=== PATIENT | male | born 1980 | race Caucasian/White ===

== ENCOUNTER 2018-07-12 12:12 | Emergency (ER) | payer BC, SELFPAY ==
[2018-07-12] MEDS ORDERED: Lidocaine 1% 20 ML MDV ONE (12:37)
[2018-07-12] MEDS ORDERED: Adacel (T-DAP) 0.5 ML VIAL ONE (12:41)
== END 2018-07-12 13:14 | disposition home or self-care (01) ==
LOC: SCSER 12:12
DX: S01.312A Laceration without foreign body of left ear, initial encounter (principal); W26.8XXA Contact with other sharp object(s), not elsewhere classified, initial encounter
CPT/HCPCS: 12011; 90471; 90715; J2001

== ENCOUNTER 2018-11-05 17:41 | Observation (INO) | payer BC, SELFPAY ==
[~2018-11-05 17:41] MED LIST: Iopamidol 370 76% 100 ML VIAL ONE
[2018-11-05 18:20] LABS: #Basophils 0.1 thou/uL (0.0-0.2); #Eosinphils 0.1 thou/uL (0.0-0.7); #Lymphocytes 1.3 thou/uL (1.20-3.40); #Monocytes 0.8 thou/uL (0.11-0.59); #Neutrophils 7.4 thou/uL (1.40-6.50); %Basophils 1.1 % (0.0-1.0); %Eosinophils 1.4 % (0.0-10.0); %Lymphocytes 13.5 % (21.0-51.0); %Monocytes 8.1 % (0.0-10.0); %Neutrophils 75.9 % (42.0-75.0); Hemoglobin 15.3 g/dL (14.0-18.0); Mean Corpuscular HGB CONC 34.4 g/dL (32.0-36.0); Mean Corpuscular Hemoglobin 31.7 pg (27.0-31.0); Mean Corpuscular Volume 92.3 fL (78.0-98.0); Mean Platelet Volume 10.5 fL (7.4-10.4); Platelet Count 275 thou/uL (130-400); RBC Distribution Width 11.8 % (11.5-14.5); Red Blood Cell (RBC) Count 4.82 mill/uL (4.70-6.10); White Blood Cell (WBC) Count 9.7 thou/uL (4.8-10.8)
[2018-11-05 18:28] LABS: ALT (SGPT) 26 U/L (8-55); AST (SGOT) 25 U/L (5-34); Albumin 4.9 g/dL (3.5-5.0); Alkaline Phosphatase 73 U/L (40-150); Anion Gap 15 mmol/L (10-20); BUN (Urea Nitrogen) 12 mg/dL (8.9-20.6); Bilirubin, Total 0.5 mg/dL (0.2-1.2); CK (CPK) 340 U/L (30-200); Calc. Creatinine Clearance 0 mL/min (70-130); Calcium 9.8 mg/dL (7.8-10.44); Carbon Dioxide 28 mmol/L (22-29); Chloride 103 mmol/L (98-107); Estimated GFR-MDRD 76; Globulin 2.9 g/dL (2.4-3.5); Glucose 97 mg/dL (70-105); Potassium 3.9 mmol/L (3.5-5.1); Protein, Total 7.8 g/dL (6.0-8.3); Sodium 142 mmol/L (136-145)
[2018-11-05] MEDS ORDERED: Ketorolac Tromethamine 30 MG/ML VIAL ONE (18:50)
[2018-11-05] MEDS ORDERED: Clopidogrel Bisulfate 75 MG TAB ONE (18:50)
--- NOTE | 2018-11-05 20:21 | CT ---
CT BRAIN 11/05/18 HISTORY: Syncope. Noncontrast enhanced CT images of the brain is obtained from the base of the skull to the vertex. Bra in and bone windows obtained. CT images of the brain demonstrate the brain to be unremarkable. No evidence of intracranial masses, hemorrhages, strokes or contusions seen. IMPRESSION: Unremarkable CT brain POS: [facility]
[2018-11-05 20:50] VITALS: BMI 24.8
--- NOTE | 2018-11-05 20:58 | CT ---
CT CERVICAL SPINE: 11/05/18 HISTORY: Syncopal episode. History of fall, neck pain. A noncontrast enhanced CT images of the cervical spine obtained. Sagittal and coronal reconstructed i mages performed. CT images cervical spine demonstrate disc space height loss with anterior and posterior osteophytes a t C5-6. This is compatible with changes of spondylosis. No evidence of acute cervical spine fractures, subluxations or bony lesions seen. IMPRESSION: Changes of spondylosis at C5-6, otherwise unremarkable CT cervical spine. POS: [facility]
--- NOTE | 2018-11-05 21:00 | CT ---
CONTRAST ENHANCED CT IMAGES CHEST 11/05/18 HISTORY: Syncope. Fall. Back pain. Contrast enhanced CT of the chest performed. The lungs are well aerated. No evidence of active intrat horacic disease seen. No evidence of pleural or pericardial effusion seen. No evidence of pulmonary e mboli seen. Osseous structures are intact. No evidence of rib fractures seen. Sagittal and coronal reconstructed images of the thoracic spine demonstrates no evidence of masses or lesions. IMPRESSION: Unremarkable contrast enhanced CT of the chest. POS: [facility]
[2018-11-05 21:08] LABS: Troponin I 0.017 ng/mL (< 0.028)
[2018-11-05] MEDS ORDERED: Ondansetron ODT 4 MG TAB SL PRN (21:48)
[2018-11-05] MEDS ORDERED: Ondansetron PF 4 MG/2 ML Vial IVP PRN (21:48)
[2018-11-05] MEDS ORDERED: Ketorolac Tromethamine 30 MG/ML VIAL IVP PRN (21:52)
[2018-11-05] MEDS ORDERED: Clopidogrel Bisulfate 75 MG TAB PO SCH (22:00)
[2018-11-05] MEDS: HYDROcodone/Acetaminophen 7.5/325 mg Tablet PO PRN (23:30)
[2018-11-05] MEDS ORDERED: Cyclobenzaprine 10 MG TAB PO SCH (23:30)
[2018-11-06 00:12] LABS: Troponin I 0.012 ng/mL (< 0.028)
--- NOTE | 2018-11-06 03:52 | HP ---
CHIEF COMPLAINT: "Passed out" HISTORY OF PRESENT ILLNESS: Mr. Fay is a 38-year-old man, who presents after experiencing a sudden syncopal episode while at home today, witnessed by his daughter. He recalls getting up from the couch after waking up from a nap. He had taken several steps and had no warning symptoms i.e. lightheadedness, or dizziness. No chest pain or sob. Daughter describes mild twitching in the upper extremities, but no stiffness or convulsions. He states he has had episodes similar to this for many years. He states he has never undergone any investigations for this. He underwent an ECG in the ER and was noted to have a partial right bundle-branch block. CT Head/neck showed changes of spondylosis at C5-C6, otherwise unremarkable, and no evidence of any fractures. He also underwent a CT of the chest, which was unremarkable. A brain CT also showed no acute changes. The patient was then transferred here from [facility] ER. He is being admitted for observation and further investigations. REVIEW OF SYSTEMS: The patient denies having any recent fevers, chills, or sweats. Denies having any issues with headaches or dizziness. He is experiencing neck pain at this moment since having the collapse earlier today. He states the pain is in the neck up to the occiput and on the anterior neck along his skin, which he describes as sharp needles with minimal tenderness to light touch. He states he has not experienced pain like this before. 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 He describes occasional numbness and tingling in the right upper extremity that sometimes extends into his right shoulder. Denies having any weakness. Has not experienced this today. He denies having any nausea or vomiting. No abdominal pain or cramping. No changes with his stools. Denies having any urinary symptoms. No skin changes. All other review of systems are negative. PAST MEDICAL HISTORY: None. PAST SURGICAL HISTORY: None. FAMILY HISTORY: The patient is adopted, therefore it is unknown. SOCIAL HISTORY: Denies any heavy alcohol use, tobacco use or drug use. ALLERGIES: EXCEDRIN CAUSED HIVES 20 YEARS AGO. HE DENIES ANY ALLERGIES TO ACETAMINOPHEN. TRAMADOL CAUSES ITCHING. CURRENT MEDICATIONS: None. PHYSICAL EXAMINATION: GENERAL: The patient appears well developed, well nourished, and is in no acute distress. VITAL SIGNS: Temperature 97.9, pulse 60, respirations 20, O2 saturation 98% on room air. Blood pressure 146/106. HEENT: Normocephalic and atraumatic. Pupils are equal, round, and reactive to light. Extraocular movements normal. No nystagmus. Oropharynx is clear. NECK: Supple with radicular type pain upon slight touch of the anterior neck. Mild discomfort with palpation of the posterior neck. No skull deformities. Full range of motion. LUNGS: Clear to auscultation. CARDIAC: Regular rhythm. ABDOMEN: Soft, nontender, nondistended. Normoactive bowel sounds present. EXTREMITIES: No clubbing, cyanosis, or edema. NEUROLOGIC: Alert and oriented x3. No neuro deficits. SKIN: Without rash or jaundice. LABORATORY DATA: Full blood count normal. Platelets 275. Sodium 142, potassium 3.9, chloride 103, BUN 12, creatinine 1.10, GFR 76, glucose 97, calcium 9.8, total bilirubin 0.5, AST 25, ALT 26, alkaline phosphatase 73, CK 340, troponin 0.018, albumin 4.9. IMAGING DATA: As mentioned above in HPI. IMPRESSION AND PLAN: Mr. Fay is a 38-year-old man, who is being admitted for management of the followin. Syncope. The patient has had recurrent syncopal episodes for the last several years that happen without warning. He has no preceding or associated symptoms. We have requested an echo as well as a brain MRI and carotid Dopplers. We will obtain a urine drug screen and urinalysis. Orthostatic blood pressures x 1. 2. Neck pain. The patient did sustain an injury when he collapsed. No evidence of any fractures on CT imaging of the spine; however, we have added a MRI of the cervical spine to the brain MRI. We will give Ogema and Flexeril, as no relief with Toradol. 4. Deep venous thromboembolism prophylaxis with mechanical SCDs. 5. Gastrointestinal prophylaxis. 6. FULL CODE STATUS and his is his surrogate decision maker. The patient's case was discussed with Dr. Montgomery, who agrees with plan of care as described above. Job ID: [id number] MTDD
[2018-11-06] MEDS: HYDROcodone/Acetaminophen 7.5/325 mg Tablet PO PRN ×4 (04:32→21:01)
[2018-11-06 05:28] LABS: Bilirubin Negative (Negative); Blood, Urine Negative (Negative); Clarity CLEAR (Clear); Glucose, Urine (Dipstick) Negative (Negative); Leukocyte Negative (Negative); Nitrite Negative (Negative); Protein, Urine (Dipstick) Negative (Neg-Trace); Specific Gravity, Urine 1.025 (1.002-1.036); Urobilinogen 0.2 mg/dL (0.2-1.0)
[2018-11-06] MEDS ORDERED: Cyclobenzaprine 10 MG TAB PO SCH (05:30)
[2018-11-06 05:31] LABS: Bacteria/HPF None Seen HPF (None Seen); Hyaline Casts/LPF 0-3 HYALINE CAST LPF (0-3 Hyaline); Pathc Cast-AUWi Flag 0.14 (0-2.49); RBC/HPF 0-3 HPF (0-3); Squamous Epithelial 0-3 HPF (0-3); WBC/HPF 0-3 HPF (0-3)
[2018-11-06 05:35] LABS: Urine Culture Reflex No No
[2018-11-06 05:38] LABS: Amphetamine Not Detected (NotDetected); Barbiturates Screen Not Detected (NotDetected); Benzodiazepine Screen Not Detected (NotDetected); Cocaine Metabolite Screen Not Detected (NotDetected); Medtox Control Line Valid? VALID (VALID); Medtox Reader # READER 4; Methadone Not Detected (NotDetected); Methamphetamine Not Detected (NotDetected); Opiate Screen Not Detected (NotDetected); Oxycodone Screen Not Detected (NotDetected); Phencyclidine (PCP) Not Detected (NotDetected); THC/Cannabinoid Screen Detected (NotDetected); Tricyclic Screen Not Detected (NotDetected)
[2018-11-06 05:47] LABS: #Eosinphils 0.3 thou/uL (0.0-0.7); #Lymphocytes 2.1 thou/uL (1.20-3.40); #Monocytes 0.5 thou/uL (0.11-0.59); #Neutrophils 3.2 thou/uL (1.40-6.50); %Basophils 0.8 % (0.0-1.0); %Eosinophils 4.8 % (0.0-10.0); %Lymphocytes 33.7 % (21.0-51.0); %Monocytes 8.8 % (0.0-10.0); %Neutrophils 51.9 % (42.0-75.0); Hemoglobin 13.4 g/dL (14.0-18.0); Mean Corpuscular HGB CONC 34.5 g/dL (32.0-36.0); Mean Corpuscular Hemoglobin 32.7 pg (27.0-31.0); Mean Corpuscular Volume 94.7 fL (78.0-98.0); Mean Platelet Volume 9.7 fL (7.4-10.4); Platelet Count 225 thou/uL (130-400); RBC Distribution Width 11.6 % (11.5-14.5); White Blood Cell (WBC) Count 6.2 thou/uL (4.8-10.8)
[2018-11-06 06:04] LABS: Anion Gap 12 mmol/L (10-20); BUN (Urea Nitrogen) 14 mg/dL (8.9-20.6); Calc. Creatinine Clearance 118 mL/min (70-130); Calcium 9.1 mg/dL (7.8-10.44); Carbon Dioxide 24 mmol/L (22-29); Chloride 108 mmol/L (98-107); Estimated GFR-MDRD 86; Glucose 101 mg/dL (70-105); Potassium 3.6 mmol/L (3.5-5.1); Sodium 140 mmol/L (136-145)
[2018-11-06] MEDS: Famotidine 20 MG TAB PO SCH ×2 (09:17→21:00)
--- NOTE | 2018-11-06 11:31 | MRI ---
MRI BRAIN NONCONTRAST: Date: 11/05/18 HISTORY: Syncope. FINDINGS: There is no evidence of acute intracranial hemorrhage or infarct. Ventricles appear normal in size, s hape, and position. There is no mass effect or shift of midline structures. IMPRESSION: No acute intracranial abnormalities are demonstrated. POS: [facility]
--- NOTE | 2018-11-06 12:19 | MRI ---
MRI CERVICAL SPINE NONCONTRAST: Date: 11/05/18 HISTORY: Fall. Neck pain with right arm radiculopathy. FINDINGS: Vertebral body height and alignment are maintained. Bone marrow signal is within normal limits. C2-3, C3-4, C4-5, and C7-T1: Central canal and neural foramina are patent. C5-6: Mild posterior and left posterolateral disc protrusion slightly effacing the ventral aspect of the thecal sac and left ventral aspect of the spinal cord. Osteophytosis results in severe stenosis of each neural foramen. No abnormal signal is apparent within the cord. Severe central canal stenosis . C6-7: Mild osteophyte/disc complex. Mild central canal stenosis. Osteophytosis with severe bilateral foraminal stenoses. IMPRESSION: Degenerative changes lower cervical spine, including severe bilateral foraminal stenoses at the C5-6 and C6-7 levels. Posterior disc bulge also effaces the thecal sac and results in severe stenosis of t he central canal at the C5-6 level. No evidence of myelomalacia. POS: [facility]
[2018-11-06] MEDS: Cyclobenzaprine 10 MG TAB PO PRN (13:31)
--- NOTE | 2018-11-06 16:12 | ULT ---
CAROTID ULTRASOUND: HISTORY: A 38-year-old with syncope. TECHNIQUE: Multiple longitudinal and transverse images of the carotid arteries obtained using a Multi-Hertz line ar array transducer. FINDINGS: Real-time, color-flow, and spectral wave-form Doppler analysis demonstrates no significant evidence o f calcified or noncalcified plaques in the right or left common carotid, internal carotid, or externa l carotid arteries. Antegrade flow is seen in both vertebral arteries. IMPRESSION: Normal carotid Doppler ultrasound with no significant evidence of stenosis or flow-limiting lesion se en. POS: [facility]
[2018-11-06] MEDS ORDERED: Lisinopril 5 MG TAB PO SCH (16:30)
--- NOTE | 2018-11-06 17:48 | PDOC.PN ---
- Subjective Encounter Start Date: 11/06/18 Encounter Start Time: 13:00 The patient is a 38 year old male who has presented with an episode of syncope at home. He has had numerous episodes in the past, and has presented for workup. His and daughter are at bedside. He denies any chest pain, SOB, or dizziness. He denies palpitations. He states that he has had some tingling in his right arm which is a chronic problem for him. He does have some neck pain after his syncopal event, but this is improved since his arrival. - Objective Resuscitation Status - Order Detail: 11/05/18 22:59 Resuscitation Status Routine Co-Sign Provider: Resuscitation Status: FULL: Full Resuscitation Vital Signs & Weight: Vital Signs (12 hours) Temp Pulse Resp BP BP Pulse Ox 11/06/18 16:31 71 11/06/18 15:39 97.9 F 71 15 158/99 H 99 11/06/18 11:40 97.8 F 61 15 149/96 H 98 11/06/18 07:27 97.4 F L 63 14 140/91 H 98 Weight Weight 178 lb 1.6 oz I&O: 11/05/18 11/06/18 11/07/18 06:59 06:59 06:59 Intake Total 800 600 Output Total 600 Balance 200 600 Result Diagrams: 11/06/18 04:58 11/06/18 04:58 Phys Exam - Physical Examination HEENT: PERRLA Neck: no nodes, no JVD Respiratory: no wheezing, no rales, clear to auscultation bilateral Cardiovascular: RRR, no significant murmur Gastrointestinal: soft, non-tender Musculoskeletal: no edema, pulses present Neurological: non-focal Lymphatic: no nodes Psychiatric: normal affect, A&O x 3 Deviation from normal: Tatoos present; small superficial mobile cyst located right posterior neck Dx/Plan (1) Syncope Code(s): R55 - SYNCOPE AND COLLAPSE Status: Acute Qualifiers: Syncope type: vasovagal syncope Qualified Code(s): R55 - Syncope and collapse (2) Hypertension Code(s): I10 - ESSENTIAL (PRIMARY) HYPERTENSION Status: Acute Qualifiers: Hypertension type: essential hypertension Qualified Code(s): I10 - Essential (primary) hypertension (3) Foraminal stenosis of cervical region Code(s): M99.81 - OTHER BIOMECHANICAL LESIONS OF CERVICAL REGION Status: Chronic (4) Cannabis abuse Code(s): F12.10 - CANNABIS ABUSE, UNCOMPLICATED Status: Acute - Plan * . Will await echo and carotid doppler results. Serum cortisol normal. Initiate anti-hypertensive with lisinopril 5 mg daily. Regrading his severe foraminal stenosis C5-C6, care discussed with Killian Dorsey PA-C. He does have severe foraminal stenosis, but not concerning for significant central stenosis, and she recommends outpatient follow up. If workup negative and BP controlled, anticipate discharge tomorrow, pending echo and carotid doppler results. Review of Systems - Review of Systems Constitutional: negative: fever, chills, sweats Eyes: negative: Pain, Vision Change Respiratory: negative: Cough, Shortness of Breath, Hemoptysis Cardiovascular: negative: chest pain, palpitations, light headedness Gastrointestinal: negative: Nausea, Vomiting, Abdominal Pain Musculoskeletal: Neck Pain. negative: Arm Pain, Back Pain Skin: negative: Rash, Lesions Neurological: Numbness - Medications/Allergies Allergies/Adverse Reactions: Allergies Allergy/AdvReac Type Severity Reaction Status Date / Time acetaminophen Allergy Intermediate Hives Verified 11/05/18 20:57 [From Excedrin Extra Strength] aspirin Allergy Intermediate Hives Verified 11/05/18 20:57 [From Excedrin Extra Strength] caffeine Allergy Intermediate Hives Verified 11/05/18 20:57 [From Excedrin Extra Strength] tramadol Allergy Mild itching Verified 11/05/18 20:57 Medications: Current Medications Hydrocodone Bitart/Acetaminophen ([place] 7.5/325) 1 tab PO Q4H PRN PRN Reason: Moderate Pain (4-6) Last Admin: 11/06/18 16:38 Dose: 1 tab Cyclobenzaprine HCl (Flexeril) 10 mg PO TID PRN PRN Reason: Muscle Spasm Last Admin: 11/06/18 13:31 Dose: 10 mg Famotidine (Pepcid) 20 mg PO BID PA Last Admin: 11/06/18 09:17 Dose: 20 mg Lisinopril (Zestril) 5 mg PO DAILY PA Lisinopril (Zestril) 5 mg PO [facility] Stop: 11/06/18 18:00 Last Admin: 11/06/18 16:31 Dose: 5 mg
[2018-11-07] MEDS: Cyclobenzaprine 10 MG TAB PO PRN ×2 (01:49→12:07)
[2018-11-07] MEDS: HYDROcodone/Acetaminophen 7.5/325 mg Tablet PO PRN ×2 (01:49→08:32)
[2018-11-07 05:46] LABS: #Basophils 0.1 thou/uL (0.0-0.2); #Eosinphils 0.3 thou/uL (0.0-0.7); #Lymphocytes 2.4 thou/uL (1.20-3.40); #Monocytes 0.5 thou/uL (0.11-0.59); %Eosinophils 3.9 % (0.0-10.0); %Lymphocytes 33.3 % (21.0-51.0); %Monocytes 6.9 % (0.0-10.0); Mean Corpuscular HGB CONC 33.8 g/dL (32.0-36.0); Mean Corpuscular Hemoglobin 32.9 pg (27.0-31.0); Mean Corpuscular Volume 97.3 fL (78.0-98.0); Mean Platelet Volume 9.5 fL (7.4-10.4); Platelet Count 217 thou/uL (130-400); RBC Distribution Width 11.6 % (11.5-14.5); Red Blood Cell (RBC) Count 4.27 mill/uL (4.70-6.10); White Blood Cell (WBC) Count 7.3 thou/uL (4.8-10.8)
[2018-11-07 06:02] LABS: Anion Gap 11 mmol/L (10-20); BUN (Urea Nitrogen) 15 mg/dL (8.9-20.6); CK (CPK) 163 U/L (30-200); Calc. Creatinine Clearance 114 mL/min (70-130); Calcium 9.5 mg/dL (7.8-10.44); Carbon Dioxide 27 mmol/L (22-29); Chloride 106 mmol/L (98-107); Estimated GFR-MDRD 83; Glucose 89 mg/dL (70-105); Potassium 4.4 mmol/L (3.5-5.1); Sodium 140 mmol/L (136-145)
[2018-11-07 08:26] VITALS: TEMP 97.4
[2018-11-07] MEDS: Famotidine 20 MG TAB PO SCH (08:32)
[2018-11-07] MEDS ORDERED: Lisinopril 5 MG TAB PO SCH (09:00)
[2018-11-07 12:21] VITALS: BP 158/92
--- NOTE | 2018-11-07 17:21 | PDOC.EVN ---
Event Note - Event Note Event Note: case with BASSEM Cabezas, agree with management
--- NOTE | 2018-11-07 23:12 | DIS ---
DATE OF ADMISSION: 11/05/2018 DATE OF DISCHARGE: 11/07/2018 DISCHARGE DIAGNOSES: 1. Syncope, resolved. 2. Hypertension, stable. 3. Foraminal stenosis of cervical region, stable. 4. Cannabis abuse. CONSULTATIONS: None. PROCEDURES: None. LABORATORY DATA: WBCs 7.3, RBC 4.27, hemoglobin 14.0, platelets 217. D-dimer less than 0.27. Sodium 140, potassium 4.4, anion gap 11, BUN 15, creatinine 1.02, estimated GFR 83, glucose 89, magnesium 2.0, troponin 0.012, BNP 18.9, cortisol 3.7. Urinalysis unremarkable. Toxicology screen detected cannabinoids. DIAGNOSTIC IMAGING: CT of brain was unremarkable. CT cervical spine showed changes of spondylosis of C5-C6, otherwise unremarkable. CT chest was unremarkable and showed no evidence of rib fractures. MRI of brain showed no acute intracranial abnormalities. MRI cervical spine showed degenerative changes in lower cervical spine including severe bilateral foraminal stenosis at C5-C6 and C6-C7 levels, posterior disc bulge also effaces thecal sac and results in severe stenosis of the central canal at C5-C6 level. No evidence of myelomalacia noted. Carotid ultrasound showed normal carotid Doppler ultrasound with no significant evidence of stenosis or flow limiting lesion seen. Echocardiogram displayed an ejection fraction of 45% to 50%. HOSPITAL COURSE: Mr. Fay is a pleasant 38-year-old male, who had presented to [facility] after a syncopal episode at home. Workup included CTA, CT brain, CT cervical spine, and CT of chest which were found to be unremarkable. However, CT of spine did show changes of spondylosis of C5-C6. MRI of brain also was unremarkable and showed no acute intracranial abnormalities. MRI cervical spine showed degenerative changes in lower cervical spine including severe bilateral foraminal stenosis at C5-C6 and C6-C7 levels. Posterior disc bulge also noted with no evidence of myelomalacia noted. Carotid ultrasound was normal and showed no evidence of significant stenosis or flow-limiting lesion. The patient was placed on [place] and cyclobenzaprine as needed for pain control. He had tolerated this regimen well. The case was then discussed with Killian Dorsey PA-C, for Neurosurgery Services. However, findings were not concerning for any significant central stenosis. However, recommended outpatient followup was then determined. During hospital course, the patient's blood pressure was noted to be elevated. Therefore, he was started on low-dose lisinopril 5 mg daily. Blood pressure was also noted to improve to 148/99. He underwent echocardiogram, which showed an ejection fraction slightly diminished at 45% to 50%. He was seen and examined with no further headache, blurred vision, or dizziness. No chest pain, palpitation, or shortness of breath. No further episodes of a syncopal-like episode throughout hospital course. He was placed on cyclobenzaprine and also naproxen upon discharge for his pain control. The patient had an allergy to aspirin, however, had admitted to taking ibuprofen, Motrin, and Aleve in the past and had tolerated well without any allergic symptoms. It was strongly recommended that he follow smoking cessation including cannabis use. He had verbalized his understanding for this discharge plan. He was also instructed to follow up with PCP in 1 week for a possible referral to Neurosurgery in the near future for cervical spinal stenosis. He was deemed medically stable for discharge home on 11/07/2018. DISCHARGE HOME MEDICATIONS: 1. Cyclobenzaprine 10 mg p.o. t.i.d. p.r.n. pain. 2. Pepcid 20 mg p.o. b.i.d. 3. Lisinopril 5 mg p.o. daily. 4. Naproxen 500 mg p.o. b.i.d. p.r.n. pain. FOLLOWUP: The patient was instructed to follow up with his PCP, Dr. Nikunj Harvey, in 1 week. ACTIVITY: As tolerated. DIET: Heart healthy. CONDITION: Stable. DISPOSITION: Home, 11/07/2018. Job ID: [id number]
== END 2018-11-07 12:32 | disposition home or self-care (01) ==
LOC: SCSER 17:41 → 2SW 19:00
PROVIDERS: ADMIT Hospitalist; ATTEND Hospitalist
DX: R55 Syncope and collapse (principal); I10 Essential (primary) hypertension; M48.02 Spinal stenosis, cervical region; M50.122 Cervical disc disorder at C5-C6 level with radiculopathy; M47.22 Other spondylosis with radiculopathy, cervical region; F12.10 Cannabis abuse, uncomplicated; Z88.6 Allergy status to analgesic agent; Z88.5 Allergy status to narcotic agent; Z79.899 Other long term (current) drug therapy
CPT/HCPCS: 36415; 70450; 70551; 71260; 72125; 72141; 80048; 80053; 80306; 81001; 82533; 82550; 83735; 83880; 84484; 85025; 85379; 93005; 93306; 93880; 96361; 96374; 96375; 96376; G0378; J1885; J2270; Q9967